=== PATIENT | female | born 1990 | race Two or more races ===

== ENCOUNTER 2016-12-30 11:17 | Emergency (ER) | payer SELFPAY ==
[~2016-12-30] VITALS: Ht 160 cm; Wt 99.8 kg
[2016-12-30 12:50] VITALS: BP 141/85
[2016-12-30] MEDS ORDERED: SILVER SULFADIAZINE 1 % TOPICAL CREAM 50GM TOP ONE (13:30)
== END 2016-12-30 13:39 | disposition home or self-care (01) ==
LOC: ER 11:17
DX: T25.222A Burn of second degree of left foot, initial encounter (principal); X11.8XXA Contact with other hot tap-water, initial encounter; Y93.89 Activity, other specified; Y99.8 Other external cause status; Y92.89 Other specified places as the place of occurrence of the external cause
CPT/HCPCS: 16000